=== PATIENT | male | born 1970 | race Hispanic/Latino ===

== ENCOUNTER 2021-07-26 11:57 | Emergency (ER) | payer SELFPAY ==
--- NOTE | 2021-07-26 13:09 | Emergency Department Report ---
Upper Extremity - HPI Chief Complaint: Extremity Injury, Upper Stated Complaint: RT ARM INJURY Time Seen by Provider: 07/26/21 12:46 Upper Extremity: Right Elbow Occurred When: Today Symptoms: Yes Pain with Movement, Yes Limited Range of Movement (Chronic ), Yes Swelling, No Deformity, No Numbness, No Weakness, No Bruising/Ecchymosis, No Laceration or Abrasion Other History: 51-year-old male presents to the ER today with complaints of right elbow pain and injury. 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 He states that the car look like he was about to fall over the edge, and when he tried to prevent that and adjust the jaiden it jerked his right arm and he felt a pop. He states that the area has been painful since the injury. Patient does admit that he has had a bicep tendon tear to that same right upper extremity which occurred several years ago but never followed up to have it checked and so he has chronic limitation to his movement of his right elbow. He has not taken anything for pain since injury this morning and he states that he does not want anything for pain at this time. He reports no additional symptoms at this time. ED Review of Systems ROS: Stated complaint: RT ARM INJURY Other details as noted in HPI Comment: All other systems reviewed and negative Constitutional: denies: chills, fever, weakness Eyes: as per HPI. denies: eye discharge, vision change ENT: denies: ear pain, throat pain, dental pain, hearing loss, epistaxis, congestion Respiratory: denies: cough, shortness of breath, wheezing Cardiovascular: denies: chest pain, palpitations, dyspnea on exertion, edema, syncope, paroxysmal nocturnal dyspnea Endocrine: no symptoms reported Gastrointestinal: denies: abdominal pain, nausea, vomiting, diarrhea, constipation, hematemesis, hematochezia Genitourinary: denies: urgency, dysuria, frequency, hematuria, discharge, testicular pain, testicular mass Musculoskeletal: joint swelling, arthralgia. denies: back pain, myalgia Skin: denies: rash, lesions, change in color, change in hair/nails, pruritus Neurological: denies: headache, weakness, numbness, paresthesias, confusion, abnormal gait, vertigo Psychiatric: denies: anxiety, depression, auditory hallucinations, visual hallucinations, homicidal thoughts, suicidal thoughts Hematological/Lymphatic: denies: easy bleeding, easy bruising, swollen glands ED Past Medical Hx - Past Medical History Previous Medical History?: No Additional medical history: Hep C - Surgical History Past Surgical History?: Yes Hx Appendectomy: Yes - Social History Smoking Status: Current Every Day Smoker Substance Use Type: None - Medications Home Medications: Home Medications Medication Instructions Recorded Confirmed Last Taken Type Ibuprofen [Motrin] 600 mg PO Q8H PRN #30 tablet 07/26/21 Unknown Rx Upper Extremity Exam - Exam General: Vital signs noted. No distress. Alert and acting appropriately. Head and Torso: No HEENT Abnormality, No Neck Tenderness, No Chest/Lungs Abnormality, No Abdominal Tenderness, No Back Tenderness Shoulder Exam: Yes Normal Range of Motion in Shoulder, No Shoulder Tenderness, No Clavicle Tenderness, No Shoulder Deformity, No AC Joint Tenderness Arm Exam: Yes Arm Deformity (Atrophic bicep muscle noted to the right upper arm), No Arm/Humerus Tenderness Elbow: Yes Elbow Tenderness (Moderate tenderness to palpation to the medial aspect of the left elbow), Yes Normal Range of Motion in Elbow (Patient unable to extend his elbow, is able to partially flex his elbow, but this limitation of range of motion is chronic due to his previous injury), No Elbow Deformity Forearm: Yes Pain with Pronation (Limited due to previous bicep tendon injury from several years ago), Yes Pain with Supination (Limited due to previous bicep tendon injury from years ago), No Forearm Tenderness, No Forearm Deformity Wrist: Yes Normal ROM in Wrist, No Wrist Tenderness, No Wrist Deformity, No Snuffbox Tenderness, No Pain with Axial Thumb Compression Hand: Yes Normal ROM in Digit(s), No Hand Tenderness, No Hand Deformity, No Digit Tenderness, No Digit(s) Deformity, No Tendon Dysfunction CMS Exam: Yes Normal Distal Pulses, Yes Normal Capillary Refill, Yes Normal Distal Sensation, No Broken Skin - Orthopedic Splinting/Casting Injury #1 Side: right Upper Extremity Injury Location: elbow Upper Extremity Immobilizer: sling/shoulder immobilize, posterior splint Additional Comments: Post splint shows that patient is neurovascularly intact. Patient tolerated procedure well without any complications. ED Medical Decision Making - Radiology Data Radiology results: report reviewed Patient: AXEL BXATER MR#: [id number] : 1970 Acct:[id number] Age/Sex: 51 / M ADM Date: 07/26/21 Loc: ED Attending Dr: Ordering Physician: IFTIKHAR MANCINI Date of Service: 07/26/21 Procedure(s): XR elbow 3+V RT Accession Number(s): [id number] cc: IFTIKHAR MANCINI Fluoro Time In Minutes: Right elbow-3 views INDICATION: elbow pain/injury. COMPARISON: Right elbow series from 06/09/2016 IMPRESSION: Comminuted fracture of the radial head along the radial aspect of the elbow with overlying soft tissue swelling and joint effusion. There are also at least 4 osteochondral bodies in the elbow, largest along the anterior elbow measuring up to 1.4 cm in maximal dimension. Normal alignment. Secondary degenerative changes are also seen in the elbow. Signer Name: Omar Morales MD Signed: 07/26/2021 2:04 PM Workstation Name: [id number] Transcribed By: JW Dictated By: Omar Morales MD Electronically Authenticated By: Omar Morales MD Signed Date/Time: 07/26/211403 DD/ 01 TD/TT: - Medical Decision Making X-ray of the right elbow shows Comminuted fracture of the radial head along the radial aspect of the elbow with overlying soft tissue swelling and joint effusion. There are also at least 4 osteochondral bodies in the elbow, largest along the anterior elbow measuring up to 1.4 cm in maximal dimension. Normal alignment. Secondary degenerative changes are also seen in the elbow. Discussed x-ray results with patient. pre splint, patient is neurovascularly intact Post splint shows that patient is neurovascularly intact Informed patient that he will need to follow-up with orthopedic doctor, patient does not have [address] Lord information will be provided to patient for follow-up. Patient is requesting nothing strong for his pain so will be given ibuprofen. Patient expressed understanding of all instructions and agree with plan. Patient stable at time of discharge. Critical care attestation.: If time is entered above; I have spent that time in minutes in the direct care of this critically ill patient, excluding procedure time. ED Disposition Clinical Impression: Radial head fracture, closed Disposition: 01 HOME / SELF CARE / HOMELESS Is pt being admited?: No Does the pt Need Aspirin: No Condition: Stable Instructions: Cast or Splint Care, Adult, Xbef-ew-[id number], Radial Head Fracture, Wiol-ma-Vuyi Additional Instructions: Do not remove splint or get it wet. Keep your arm up in the sling as often as possible to help with swelling. It is very very important that you follow-up with hearing specialist listed on your discharge instructions because you do have a fracture to your radius. Take the motrin as prescribed for pain. Return to the ER if your symptoms changes or worsens in any way. Prescriptions: Ibuprofen [Motrin] 600 mg PO Q8H PRN #30 tablet PRN Reason: Pain Referrals: JAREN LORD MD [Staff Physician] - 3-5 Days Forms: Work/School Release Form(ED) Time of Disposition: 15:10 Print Language: BURUNDIAN
--- NOTE | 2021-07-26 14:08 | XRay Report ---
Right elbow-3 views INDICATION: elbow pain/injury. COMPARISON: Right elbow series from 06/09/2016 IMPRESSION: Comminuted fracture of the radial head along the radial aspect of the elbow with overlyi ng soft tissue swelling and joint effusion. There are also at least 4 osteochondral bodies in the elb ow, largest along the anterior elbow measuring up to 1.4 cm in maximal dimension. Normal alignment. Secondary degenerative changes are also seen in the elbow. Signer Name: Omar Morales MD Signed: 07/26/2021 2:04 PM Workstation Name: [id number]
[2021-07-26 14:22] VITALS: BP 125/85
[2021-07-26] MEDS ORDERED: IBUPROFEN 600 MG TAB PO ONE (15:07)
== END 2021-07-26 15:39 | disposition home or self-care (01) ==
LOC: ED 11:57
DX: S52.121A Displaced fracture of head of right radius, initial encounter for closed fracture (principal); X58.XXXA Exposure to other specified factors, initial encounter; Y93.89 Activity, other specified; Y92.89 Other specified places as the place of occurrence of the external cause; Y99.0 Civilian activity done for income or pay; B19.20 Unspecified viral hepatitis C without hepatic coma; Z90.89 Acquired absence of other organs; F17.200 Nicotine dependence, unspecified, uncomplicated
CPT/HCPCS: 99283

== ENCOUNTER 2021-09-27 14:56 | Emergency (ER) | payer SELFPAY ==
[2021-09-27 18:19] VITALS: BP 120/80
[2021-09-28] MEDS ORDERED: dexAMETHasone 4 MG/ML VIAL IV ONE (01:19)
[2021-09-28] MEDS ORDERED: SODIUM CHLORIDE 0.9% 1000 ML 1,000 ML IV ONE (01:19)
[2021-09-28] MEDS ORDERED: KETOROLAC 30 MG/1 ML INJ IV ONE (01:19)
[2021-09-28] MEDS ORDERED: ONDANSETRON 4 MG/2 ML INJ IV ONE (01:19)
[2021-09-28] MEDS ORDERED: FAMOTIDINE 20 MG/2 ML INJ IV ONE (01:20)
[2021-09-28 01:42] LABS: Basophils % (Auto) 0.6 % (0.0-1.8); Eosinophils # (Auto) 0.1 K/mm3 (0.0-0.4); Eosinophils % (Auto) 1.5 % (0.0-4.3); Hematocrit 42.6 % (35.5-45.6); Hemoglobin 13.6 gm/dl (11.8-15.2); Lymphocytes # (Auto) 1.4 K/mm3 (1.2-5.4); Lymphocytes % (Auto) 23.3 % (13.4-35.0); Mean Corpuscular HGB Conc 32 % (32-34); Mean Corpuscular Volume 90 fl (84-94); Monocytes # (Auto) 0.7 K/mm3 (0.0-0.8); Platelet Count 268 K/mm3 (140-440); Red Blood Count 4.72 M/mm3 (3.65-5.03); Red Cell Distribution Width 13.1 % (13.2-15.2)
--- NOTE | 2021-09-28 01:56 | XRay Report ---
CHEST 1 VIEW 09/28/2021 12:41 AM INDICATION / CLINICAL INFORMATION: Cough. COMPARISON: None FINDINGS: SUPPORT DEVICES: None. HEART / MEDIASTINUM: No significant abnormality. LUNGS / PLEURA: No significant pulmonary or pleural abnormality. No pneumothorax. ADDITIONAL FINDINGS: No significant additional findings. IMPRESSION: 1. No acute findings. Signer Name: Ata Antony DO Signed: 09/28/2021 1:52 AM Workstation Name: [id number]
[2021-09-28 02:03] LABS: Alanine Aminotransferase 9 units/L (7-56); Albumin 3.7 g/dL (3.9-5); BUN/Creatinine Ratio 15; Blood Urea Nitrogen 18 mg/dL (9-20); Calcium 8.5 mg/dL (8.4-10.2); Hemolysis Index 10
[2021-09-28 04:09] LABS: Bacteria,Urine 1+ /HPF (Negative); Bilirubin,Urine NEG (Negative); Blood,Urine NEG (Negative); Color,Urine Yellow (Yellow); Mucus,Urine FEW /HPF; Protein,Urine <15 mg/dL mg/dL (Negative); Urobilinogen,Urine < 2.0 mg/dL (<2.0)
--- NOTE | 2021-09-28 05:45 | Emergency Department Report ---
- General Chief Complaint: Weakness Stated Complaint: LIGHT HEADEDNESS/FEELING FAINT Source: patient Mode of arrival: Ambulatory Limitations: No Limitations - History of Present Illness Initial Comments: Patient is a 51-year-old male who presented to the ED with complaint of acute onset persistent diffuse body aches and pains, nasal and sinus congestion, frontal sinus pressure and headache, persistent dry cough, lack of appetite for the last 3 days. Patient states that no one else at home or at work has had similar symptoms. Patient states that he is not vaccinated against COVID-19 viral infection. Patient denies dizziness, syncope, nausea and vomiting or diarrhea, abdominal pain, chest pain, shortness of breath, change in vision, dysuria, urinary frequency and urgency or sore throat. MD Complaint: cough, rhinorrhea, nasal congestion, sinus pain, other (Severe diffuse body aches and pains) -: Sudden, days(s) (3) Severity: severe Severity scale (0 -10): 8 Quality: sharp, aching Consistency: constant Improves With: nothing Worsens With: nothing Context: sick contacts Associated Symptoms: denies other symptoms, fever, chills, myalgias, headache, rhinorrhea, nasal congestion, cough. denies: chest pain, shortness of breath, abdominal pain, nausea, vomiting, diarrhea, dysuria, rash, right sweats, weight loss, epistaxis, hoarseness, other Treatments Prior to Arrival: "cold medicine" - Related Data Previous Rx's Medication Instructions Recorded Last Taken Type Ibuprofen [Motrin] 600 mg PO Q8H PRN #30 tablet 07/26/21 Unknown Rx Azithromycin [Zithromax Z-ANNI] 250 mg PO DAILY #6 tablet 09/28/21 Unknown Rx Benzonatate [Tessalon Perles] 100 mg PO Q8HR #30 capsule 09/28/21 Unknown Rx Cetirizine HCl [Zyrtec 10mg tab] 10 mg PO DAILY #30 tablet 09/28/21 Unknown Rx Ibuprofen [Motrin] 800 mg PO Q8HR PRN #30 tablet 09/28/21 Unknown Rx methylPREDNISolone [Medrol 4MG 4 mg PO DAILY #21 tab.ds.pk 09/28/21 Unknown Rx DOSEPAK (21 tabs)] Allergies Allergy/AdvReac Type Severity Reaction Status Date / Time No Known Allergies Allergy Unverified 01/20/14 09:39 ED Review of Systems ROS: Stated complaint: LIGHT HEADEDNESS/FEELING FAINT Other details as noted in HPI Constitutional: chills, fever, malaise Eyes: denies: eye pain, eye discharge, vision change ENT: congestion. denies: ear pain, throat pain Respiratory: cough. denies: shortness of breath, wheezing Cardiovascular: denies: chest pain, palpitations Endocrine: no symptoms reported Gastrointestinal: denies: abdominal pain, nausea, vomiting, diarrhea Genitourinary: denies: urgency, dysuria Musculoskeletal: back pain, arthralgia, myalgia. denies: joint swelling Skin: denies: rash, lesions Neurological: headache. denies: weakness, paresthesias Psychiatric: denies: anxiety, depression Hematological/Lymphatic: denies: easy bleeding, easy bruising ED Past Medical Hx - Past Medical History Additional medical history: Hep C - Surgical History Hx Appendectomy: Yes - Social History Smoking Status: Current Every Day Smoker Substance Use Type: None - Medications Home Medications: Home Medications Medication Instructions Recorded Confirmed Last Taken Type Ibuprofen [Motrin] 600 mg PO Q8H PRN #30 tablet 07/26/21 Unknown Rx Azithromycin [Zithromax Z-ANNI] 250 mg PO DAILY #6 tablet 09/28/21 Unknown Rx Benzonatate [Tessalon Perles] 100 mg PO Q8HR #30 capsule 09/28/21 Unknown Rx Cetirizine HCl [Zyrtec 10mg tab] 10 mg PO DAILY #30 tablet 09/28/21 Unknown Rx Ibuprofen [Motrin] 800 mg PO Q8HR PRN #30 tablet 09/28/21 Unknown Rx methylPREDNISolone [Medrol 4MG 4 mg PO DAILY #21 tab.ds.pk 09/28/21 Unknown Rx DOSEPAK (21 tabs)] ED Physical Exam - General Limitations: No Limitations General appearance: alert, in no apparent distress - Head Head exam: Present: atraumatic, normocephalic, normal inspection - Eye Eye exam: Present: normal appearance, PERRL, EOMI Pupils: Present: normal accommodation - ENT ENT exam: Present: mucous membranes moist, TM's normal bilaterally, normal external ear exam - Neck Neck exam: Present: normal inspection, full ROM. Absent: tenderness - Respiratory Respiratory exam: Present: normal lung sounds bilaterally. Absent: respiratory distress, wheezes, rales, chest wall tenderness, accessory muscle use, decreased breath sounds, prolonged expiratory - Cardiovascular Cardiovascular Exam: Present: normal rhythm, tachycardia, normal heart sounds. Absent: systolic murmur, diastolic murmur, rubs, gallop - GI/Abdominal GI/Abdominal exam: Present: soft, normal bowel sounds. Absent: tenderness, guarding, rebound, hyperactive bowel sounds, hypoactive bowel sounds, organomegaly - Extremities Exam Extremities exam: Present: normal inspection, full ROM, normal capillary refill - Back Exam Back exam: Present: normal inspection, full ROM. Absent: tenderness, CVA tenderness (R), CVA tenderness (L), muscle spasm, paraspinal tenderness, vertebral tenderness - Neurological Exam Neurological exam: Present: alert, oriented X3, CN II-XII intact, normal gait, reflexes normal - Psychiatric Psychiatric exam: Present: normal affect, normal mood - Skin Skin exam: Present: warm, dry, intact, normal color. Absent: rash ED Course Vital Signs 09/27/21 18:17 Temperature 99.4 F Pulse Rate 104 H Respiratory 16 Rate Blood Pressure 120/80 [Left] O2 Sat by Pulse 99 Oximetry ED Medical Decision Making - Lab Data Result diagrams: 09/28/21 01:26 09/28/21 01:26 - Radiology Data Radiology results: report reviewed, [place] [address] XRay Report Signed Patient: AXEL BAXTER MR#: [id number] : 1970 Acct:[id number] Age/Sex: 51 / M ADM Date: 09/27/21 Loc: ED Attending Dr: Ordering Physician: TESSIE JOHNSON Date of Service: 09/28/21 Procedure(s): XR chest 1V ap Accession Number(s): [id number] cc: TESSIE JOHNSON Fluoro Time In Minutes: CHEST 1 VIEW 09/28/2021 12:41 AM INDICATION / CLINICAL INFORMATION: Cough. COMPARISON: None FINDINGS: SUPPORT DEVICES: None. HEART / MEDIASTINUM: No significant abnormality. LUNGS / PLEURA: No significant pulmonary or pleural abnormality. No pneumoth orax. ADDITIONAL FINDINGS: No significant additional findings. IMPRESSION: 1. No acute findings. Signer Name: Ata Antony DO Signed: 09/28/2021 1:52 AM Workstation Name: [id number] Transcribed By: MIKE Dictated By: ATA ANTONY DO Electronically Authenticated By: ATA ANTONY DO Signed Date/Time: 09/28/21151 DD/ 0 TD/TT: - Medical Decision Making This is a 51-year-old male who presented to the ED with complaint of acute onset persistent diffuse body aches and pains, nasal and sinus congestion, frontal sinus pressure and headache, persistent dry cough, lack of appetite for the last 3 days. Patient states that no one else at home or at work has had similar symptoms. Patient states that he is not vaccinated against COVID-19 viral infection. In the ED, patient is alert and oriented x3 and is not in distress. Patient was treated for pain in the ED, also received normal saline 1 L IV bolus x1. Chest x-ray showed no acute cardiopulmonary abnormalities or pneumonitis. All lab test results were reviewed and are all nonactionable. - Differential Diagnosis flu; bronchitis; pneumonia; sinusitis; URI Critical care attestation.: If time is entered above; I have spent that time in minutes in the direct care of this critically ill patient, excluding procedure time. ED Disposition Clinical Impression: Acute upper respiratory infection Acute bronchitis Qualifiers: Bronchitis organism: other organism Qualified Code(s): J20.8 - Acute bronchitis due to other specified organisms Acute frontal sinusitis Qualifiers: Recurrence: non-recurrent Qualified Code(s): J01.10 - Acute frontal sinusitis, unspecified Disposition: 01 HOME / SELF CARE / HOMELESS Is pt being admited?: No Does the pt Need Aspirin: No Condition: Stable Instructions: Acute Bronchitis (ED), Sinusitis, Adult, [id number], Upper Respiratory Infection, Adult, [id number]-[id number], Cough, Adult, Iqqf-[id number], Acute Bronchitis, Adult, [id number]-fh-Sagi Additional Instructions: All lab test results were reviewed including influenza test which were all unremarkable. Chest x-ray showed no acute cardiopulmonary abnormalities or pneumonitis. Therefore take medication with food, drink plenty of fluids and fo llow-up with your primary care physician in 7 to 10 days for reevaluation. Return to the ED immediately if symptoms get worse. Prescriptions: methylPREDNISolone [Medrol 4MG DOSEPAK (21 tabs)] 4 mg PO DAILY #21 tab.ds.pk Ibuprofen [Motrin] 800 mg PO Q8HR PRN #30 tablet PRN Reason: Pain , Severe (7-10) Benzonatate [Tessalon Perles] 100 mg PO Q8HR #30 capsule Azithromycin [Zithromax Z-ANNI] 250 mg PO DAILY #6 tablet Cetirizine HCl [Zyrtec 10mg tab] 10 mg PO DAILY #30 tablet Referrals: [facility] [Provider Group] - 7-10 days Time of Disposition: 05:46 Print Language: PASHTO
== END 2021-09-28 06:32 | disposition home or self-care (01) ==
LOC: ED 14:56
DX: J06.9 Acute upper respiratory infection, unspecified (principal); J01.10 Acute frontal sinusitis, unspecified; J20.9 Acute bronchitis, unspecified; F17.200 Nicotine dependence, unspecified, uncomplicated; Z90.49 Acquired absence of other specified parts of digestive tract; Z79.899 Other long term (current) drug therapy
CPT/HCPCS: 36415; 71045; 80053; 81001; 85025; 87400; 96361; 96374; 96375; 99284; J1100; J1885; J2405; J3490; J7030; Q0162

== ENCOUNTER 2022-03-21 18:47 | Emergency (ER) | payer SELFPAY ==
[2022-03-21 19:13] VITALS: BP 126/84
[2022-03-21 19:46] LABS: Basophils % (Auto) 0.2 % (0.0-1.8); Eosinophils # (Auto) 0.1 K/mm3 (0.0-0.4); Eosinophils % (Auto) 0.7 % (0.0-4.3); Hematocrit 45.8 % (35.5-45.6); Lymphocytes # (Auto) 0.8 K/mm3 (1.2-5.4); Lymphocytes % (Auto) 6.4 % (13.4-35.0); Mean Corpuscular HGB Conc 33 % (32-34); Mean Corpuscular Volume 91 fl (84-94); Monocytes # (Auto) 0.6 K/mm3 (0.0-0.8); Monocytes % (Auto) 4.5 % (0.0-7.3); Platelet Count 247 K/mm3 (140-440); Red Blood Count 5.04 M/mm3 (3.65-5.03); Red Cell Distribution Width 13.8 % (13.2-15.2)
[2022-03-21 20:07] LABS: Alanine Aminotransferase 11 units/L (7-56); Albumin 4.6 g/dL (3.9-5); BUN/Creatinine Ratio 23; Blood Urea Nitrogen 21 mg/dL (9-20); Hemolysis Index 8
--- NOTE | 2022-03-24 18:48 | Electrocardiograph Report ---
[facility] Test Date: 2022-03-21 Test Time: 19:02:49 Pat Name: AXEL BAXTER Department: Room: Gender: M Checker: MASOUD : 1970 Requested By: ALMA WOLFF Order Number: [id number] Reading MD: Ruth Wilkinson Measurements Intervals [place] Rate: 89 P: 71 TX: 138 QRS: -24 QRSD: 92 T: 61 QT: 363 QTc: 443 Interpretive Statements Sinus rhythm No previous ECG available for comparison Electronically Signed On 03-24-2022 18:47:56 EDT by Ruth Wilkinson
== END 2022-03-21 21:24 | disposition left against medical advice (07) ==
LOC: ED 18:47
DX: R07.89 Other chest pain (principal); Z53.21 Procedure and treatment not carried out due to patient leaving prior to being seen by health care provider
CPT/HCPCS: 36415; 80053; 83690; 85025; 93005

== ENCOUNTER 2022-04-15 09:50 | Outpatient (CLI) | payer OTHER ==
--- NOTE | 2022-04-15 11:16 | XRay Report ---
BILATERAL KNEES 4 VIEWS INDICATION / CLINICAL INFORMATION: BILATERAL KNEE PAIN COMPARISON: None available. FINDINGS: BONES and JOINT(S): No acute fracture or subluxation. Mild tricompartmental osteoarthritis is noted b ilaterally. SOFT TISSUES: No significant abnormality. ADDITIONAL FINDINGS: None. IMPRESSION: Mild osteoarthritis of the knees. Signer Name: Ignacio Aggarwal MD Signed: 04/15/2022 11:11 AM Workstation Name: [id number]
--- NOTE | 2022-04-15 11:17 | XRay Report ---
LUMBOSACRAL SPINE 3 VIEWS INDICATION: BACK PAIN. COMPARISON: 06/09/2016 IMPRESSION: There is minimal dextrocurvature of the lumbar spine on the frontal view. There is jaqueline l alignment on the lateral view however there is straightening of the normal lordosis. Mild discogen ic DJD and facet arthropathy are identified at L3-4. Moderate discogenic DJD and facet arthropathy ar e identified at L5-S1. The SI joints are unremarkable. No acute osseous or soft tissue abnormality. Signer Name: Bo Padilla Jr, MD Signed: 04/15/2022 11:11 AM Workstation Name: [id number]
== END 2022-04-15 09:51 | disposition home or self-care (01) ==
LOC: XRAY 09:50
PROVIDERS: ATTEND Internal Medicine
DX: M47.817 Spondylosis without myelopathy or radiculopathy, lumbosacral region (principal); M17.0 Bilateral primary osteoarthritis of knee
CPT/HCPCS: 72100